=== PATIENT | male | born 1990 | race Two or more races ===

== ENCOUNTER 2023-06-09 22:17 | Emergency (ER) | payer OTHER, SELFPAY ==
[2023-06-09 22:26] VITALS: BP 148/80
[2023-06-09 22:52] VITALS: BP 113/71
[2023-06-09 23:00] VITALS: BP 122/53
--- NOTE | 2023-06-09 23:28 | ED.GENMED ---
History of Present Illness
<MELANIA Maya - Last Filed: 06/12/23 16:31>
General
Chief Complaint: Fainting/Passed Out
Source: patient
Exam Limitations: none
Time Seen by Provider: 06/09/23 22:35
Nursing documentation reviewed up to this point in time: agreed with
Travel History
Have you had any contact with someone who has COVID-19?: No
Do you have any symptoms of coronavirus? Fever > 100 degrees, chills, cough, shortness of breath, sore throat, loss of taste or smell, muscle aches, or headache?: No
History of Present Illness
History of Present Illness:
32 yr. old male presents to the ER for evaluation. Patient reports has had a cough for the past 3 weeks Since having influenza. He reports he was prescribed Tessalon Perles and an inhaler at [facility] 2 weeks ago. Patient had a coughing
fit at a restaurant and then after had a syncopal episode. He woke up and had vomited. He was brought by EMS. He presently is asymptomatic. He denies any shortness of breath. He presents afebrile. Denies any recent fevers.
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
Review of Systems
<MELANIA Maya - Last Filed: 06/12/23 16:31>
Review of Systems
Allergies reviewed?: Yes
All Other Systems: ROS reviewed and negative except as documented in HPI and ROS
Constitutional: Reports no symptoms; Denies fever, fatigue or chills
EENT: Reports no symptoms
Respiratory: Reports cough and trouble breathing (Episode of coughing fit prior to arrival)
ABD/GI: Reports nausea, vomiting and other (Patient had episode of nausea and vomiting prior to arrival after coughing episode)
: Reports no symptoms
Skin: Reports no symptoms
Neurological: Reports no symptoms
Hematologic/Lymphatic: Reports no symptoms
Psychiatric: Reports no symptoms
Phy Exam
<MELANIA Maya - Last Filed: 06/12/23 16:31>
General Physical Exam
General Presentation: no apparent distress
General age: appears stated age
General Skin: warm and dry
General Habitus: obese
General Mental: alert
Cardiovascular Exam
Cardiovascular Exam: regular rate/rhythm and systolic murmur
Pulmonary Exam
Pulmonary Exam: lungs clear and no respiratory distress
Neurological Exam
Neurological Exam: alert and oriented x3
Musculoskeletal Exam
Musculoskeletal Exam: full ROM
Skin Exam
Skin Exam: normal color and warm/dry
Course
<MELANIA Maya - Last Filed: 06/12/23 16:31>
Orders/Labs/Results
Orders:
Orders
06/09/23 22:26
Electrocardiogram (*1) Urgent
Reason for Study: Syncope
EKG- Treatment ONCE
06/09/23 23:09
Chest [CR Chest - 2 Views ] Urgent
Comment:
Reason For Exam: syncope
06/09/23 23:53
Cardiac Monitoring- Treatment ONCE
IV Insert/Care/Rem.- Treatment PRN
Complete Blood Count/With Diff Urgent
Comprehensive Metabolic Panel Urgent
0.9% Sodium Chloride 1000 ml [Nss] 1,000 ml IV BOLUS
06/10/23 00:00
CT Chest Pe Study Urgent
Reason For Exam: syncope/cough
Abnormal Lab Results
06/10/23
00:04
MCV 78.8 L fL
(80.0-94.0)
MCH 26.6 L pg
(27.0-31.0)
Absolute Neuts (auto) 7.8 H 10^3/uL
(1.4-6.5)
Absolute Monos (auto) 0.9 H 10^3/uL
(0.1-0.6)
Lymphocytes % 15.6 L %
(20.5-51.1)
Glucose 145 H mg/dl
(70-99)
ALT 58 H U/L
(0-50)
06/10/23 00:04
06/10/23 00:04
Vital Signs
Initial and Last Documented VS:
Initial Vital Signs
Temp Pulse Resp BP Pulse Ox
98.6 F 88 20 148/80 99
06/09/23 22:26 06/09/23 22:26 06/09/23 22:26 06/09/23 22:26 06/09/23 22:26
Last Documented Vital Signs
Temp Pulse Resp BP Pulse Ox
98.6 F 81 22 129/70 95
06/09/23 22:26 06/10/23 02:15 06/10/23 02:15 06/10/23 02:00 06/10/23 02:15
Boning Room Worker consulted with Physician
Boning Room Worker consulted with physician?: Yes
Name of Physician Consulted: Kateryna
<Garcia Davidson, DO - Last Filed: 06/10/23 03:08>
Orders/Labs/Results
Orders:
Orders
06/09/23 22:26
Electrocardiogram (*1) Urgent
Reason for Study: Syncope
EKG- Treatment ONCE
06/09/23 23:09
Chest [CR Chest - 2 Views ] Urgent
Comment:
Reason For Exam: syncope
06/09/23 23:53
Cardiac Monitoring- Treatment ONCE
IV Insert/Care/Rem.- Treatment PRN
Complete Blood Count/With Diff Urgent
Comprehensive Metabolic Panel Urgent
0.9% Sodium Chloride 1000 ml [Nss] 1,000 ml IV BOLUS
06/10/23 00:00
CT Chest Pe Study Urgent
Reason For Exam: syncope/cough
Abnormal Lab Results
06/10/23
00:04
MCV 78.8 L fL
(80.0-94.0)
MCH 26.6 L pg
(27.0-31.0)
Absolute Neuts (auto) 7.8 H 10^3/uL
(1.4-6.5)
Absolute Monos (auto) 0.9 H 10^3/uL
(0.1-0.6)
Lymphocytes % 15.6 L %
(20.5-51.1)
Glucose 145 H mg/dl
(70-99)
ALT 58 H U/L
(0-50)
06/10/23 00:04
06/10/23 00:04
Vital Signs
Initial and Last Documented VS:
Initial Vital Signs
Temp Pulse Resp BP Pulse Ox
98.6 F 88 20 148/80 99
06/09/23 22:26 06/09/23 22:26 06/09/23 22:26 06/09/23 22:26 06/09/23 22:26
Last Documented Vital Signs
Temp Pulse Resp BP Pulse Ox
98.6 F 81 22 129/70 95
06/09/23 22:26 06/10/23 02:15 06/10/23 02:15 06/10/23 02:00 06/10/23 02:15
<MELANIA Maya - Last Filed: 06/12/23 16:31>
MDM/Problems Addressed
Differential Diagnosis Includes:
not limited to: Viral syndrome, bronchitis, cough, vasovagal episode, syncope
MDM/Problems Addressed:
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 Patient has had a cough for the past 3 weeks and was coughing prior to arrival at a restaurant and had syncope. He then vomited. He
presents awake alert no acute distress he is not hypoxic not tachycardic asymptomatic presently. Questionable abnormality on chest x-ray in the hilar region. Reviewed with ED physician will order CAT scan and labs.
<Garcia Davidson DO - Last Filed: 06/10/23 03:08>
*Radiology
Radiology exam reviewed: preliminary read by ED provider (no PTX, cardiomegaly)
*Pulse Oximetry
Patient hypoxic: no
*Critical Care Note
Total Time (30-74mins, 75-104mins- exclusive of procedures): Not Applicable
Data Reviewed
Source: patient
ED Attending Note
<MELANIA aMya - Last Filed: 06/12/23 16:31>
-
Portions of this chart may have been created with voice recognition software.� Occasional wrong word or��sound alike� substitutions may have occurred due to the inherent limitations of voice recognition software.
<Garcia Davidson DO - Last Filed: 06/10/23 03:08>
ED Attending Note
Patient seen and examined by attending physician: Yes
I performed the substantive portion of visit, reviewed & personally made and approve the management plan that is documented in note by myself or RAFAT.: Yes
ED Attending Note:
Agree with above. 32-year-old male who recently had influenza and since has had a persistent cough. No fevers. No chest pain. No hemoptysis. No leg swelling. Did have albuterol at home. Did take one of his mom's antibiotics. Exam: Awake and
alert, no respiratory distress. Assessment and plan: CT grossly negative by radiology. Cover with steroids and can albuterol. May benefit from Flovent or other inhaled steroid at some point but patient prefers to trial prednisone for now and
follow-up with PCP.
Discharge Plan
Departure
Patient Disposition: Home (Routine Discharge)
Date of Disposition: 06/10/23
Time of Disposition: 03:05
Patient with high blood pressure during this ER visit?: No
Discharge Problem:
Bronchitis
Instructions: Acute bronchitis, Syncope (Fainting) (DC)
Prescriptions:
New
prednisone 10 mg Tablet
See Rx Instructions .ROUTE .COMPLEX Qty: 45 0RF
Rx Instructions:
Take By Mouth:
50 mg daily x3 days, 40 mg daily x3 days,
30 mg daily x3 days, 20 mg daily x3 days,
10 mg daily x3 days
Referrals:
Wili Noland MD [Family Provider] -
Activity Restrictions/Additional Instructions:
Please see your doctor next 3 to 5 days for follow-up and reevaluation. Continue use of your albuterol. Return immediately for fevers, coughing up blood, worsening symptoms or any other concerns.
Interventions
Interventions:
*Risk Screen - Suicide Last Done: 06/09/23 22:26
*General Assessment Last Done: 06/09/23 22:26
*Neglect/Abuse Screening Last Done: 06/09/23 22:26
*ED COVID-19 Vaccine History Last Done: 06/09/23 22:26
*Nursing Disposition Last Done: 06/10/23 03:24
ED- Cardiac Assessment Last Done: 06/10/23 00:18
ED- Neurological Assessment Last Done: 06/10/23 00:18
Discharge Date and Time
Discharge Date/Time: 06/10/23 03:38
[2023-06-10] MEDS: NSS 1000 IV (00:03)
[2023-06-10 00:12] LABS: % Basophils 0.4 % (0-2); % Immature Granulocytes 0.3 % (0-0.5); % Lymphocytes 15.6 % (20.5-51.1); % Monocytes 8.3 % (1.7-9.3); % Neutrophils 73.4 % (42.2-75.2); Absolute Eosinophils 0.2 10^3/uL (0-0.7); Absolute Lymphocytes 1.7 10^3/uL (1.2-3.4); Absolute Monocytes 0.9 10^3/uL (0.1-0.6); Absolute Neutrophils 7.8 10^3/uL (1.4-6.5); Hematocrit 41.2 % (39.0-52.0); Hemoglobin 13.9 g/dL (13.0-18.0); Mean Corp Hgb Conc. 33.7 g/dL (33.0-37.0); Mean Corpuscular Hgb 26.6 pg (27.0-31.0); Mean Corpuscular Volume 78.8 fL (80.0-94.0); Mean Platelet Volume 9.7 fL (7.4-10.4); Nucleated Red Blood Cells % 0 % (-); Platelet Count 289 10^3/uL (130-400); Red Blood Cell Count 5.23 10^6/uL (4.70-6.10); Red Cell Dist. Width 13.7 % (11.5-14.5); White Blood Cell Count 10.7 10^3/uL (4.8-10.8)
[2023-06-10 00:43] LABS: ALT (SGPT) 58 U/L (0-50); AST (SGOT) 37 U/L (17-59); Albumin 4.3 g/dl (3.5-5.0); Alkaline Phosphatase 105 U/L (38-126); Blood Urea Nitrogen 17 mg/dl (9-20); Calcium 9.1 mg/dl (8.4-10.2); Carbon Dioxide 28 mmol/L (22-30); Chloride 105 mmol/L (98-107); Glucose 145 mg/dl (70-99); Potassium 4.2 mmol/L (3.5-5.1); Sodium 137 mmol/L (135-145); Total Bilirubin 0.6 mg/dl (0.2-1.3); Total Protein 7.2 g/dl (6.3-8.2); eGFR > 60.00
[2023-06-10 01:11] VITALS: BP 134/69
[2023-06-10 02:00] VITALS: BP 129/70
== END 2023-06-10 03:38 | disposition home or self-care (01) ==
LOC: EMR 22:17
PROVIDERS: Nurse Practitioner; EMERGENCY PHYSICIAN Emergency Medicine; FAMILY PHYSICIAN Family Medicine
DX: J40 Bronchitis, not specified as acute or chronic (principal)
CPT/HCPCS: 99285; 96360; 71046; 71275; 80053; 85025; 93005; Q9967